=== PATIENT | female | born 1965 | race Caucasian/White ===

== ENCOUNTER → 2016-08-28 | Outpatient (REF) | payer BC | LOC: M LAB REF 19:07 | PROVIDERS: ATTEND Physician Assistant Medical | DX: J02.9 Acute pharyngitis, unspecified (principal) ==

== ENCOUNTER → 2016-10-26 | Outpatient (REF) | payer BC ==
[2016-10-26 13:20] LABS: FREE T4 1.3 NG/DL (0.76-1.46)
== END ==
LOC: M LAB REF 12:28
PROVIDERS: ATTEND Internal Medicine Nephrology
DX: Z94.0 Kidney transplant status (principal); E03.9 Hypothyroidism, unspecified

== ENCOUNTER → 2017-03-31 | Outpatient (REF) | payer BC | LOC: M LAB REF 07:54 | PROVIDERS: ATTEND Internal Medicine Nephrology | DX: E03.9 Hypothyroidism, unspecified (principal); Z94.0 Kidney transplant status ==

== ENCOUNTER → 2017-06-25 | Outpatient (REF) | payer BC ==
[2017-06-25 14:12] LABS: FREE T4 1.31 NG/DL (0.76-1.46)
== END ==
LOC: M LAB REF 13:13
PROVIDERS: ATTEND Internal Medicine Nephrology
DX: Z94.0 Kidney transplant status (principal); E03.9 Hypothyroidism, unspecified

== ENCOUNTER 2017-07-05 23:53 | Emergency (ER) | payer BC ==
[2017-07-06] MEDS: ONDANSETRON 4 MG ORAL DISINTEGRATING TAB (S0181) PO (00:45)
[2017-07-06] MEDS: METOCLOPRAMIDE INJ 10MG/2ML VIAL (J2765) IV (02:45)
[2017-07-06] MEDS: NS 1,000 ML IV (02:45)
[2017-07-06 03:21] LABS: BASO % 0.1 % (0.0-1.0); EOS % 0.4 % (0.0-3.0); IMMATURE GRANULOCYTE % 0.4 % (0-0); LYMPH % 2.7 % (24.0-44.0); MEAN CORPUSCULAR HEMOGLOBIN 29.8 pg (27.0-33.0); MEAN CORPUSCULAR HGB CONC 32.2 g/dl (32.0-36.5); MEAN CORPUSCULAR VOLUME 92.8 fl (80.0-96.0); MONO # 0.8 10^3/uL (0.0-0.8); MONO % 10.1 % (0.0-5.0); NEUTROPHILS # 6.6 10^3/uL (1.8-7.7); NEUTROPHILS % 86.3 % (36.0-66.0); RED CELL DISTRIBUTION WIDTH 12.5 % (11.5-14.5); WHITE BLOOD COUNT 7.7 10^3/uL (4.0-10.0)
[2017-07-06 03:38] LABS: ANION GAP 10 MEQ/L (8-16); BLOOD UREA NITROGEN 18 MG/DL (7-18); CALCIUM LEVEL 7.7 MG/DL (8.5-10.1); CARBON DIOXIDE LEVEL 25 MEQ/L (21-32); CHLORIDE LEVEL 107 MEQ/L (98-107); CREATININE FOR GFR 1.21 MG/DL (0.55-1.02); GLOMERULAR FILTRATION RATE 50.1 (>51); GLUCOSE, FASTING 94 MG/DL (70-105); POTASSIUM SERUM 3.6 MEQ/L (3.5-5.1); SODIUM LEVEL 142 MEQ/L (136-145)
[2017-07-06 03:43] LABS: IMMATURE PLATELET FRACTION % 8.7 % (0.0-9.6); LYMPH # 0.2 10^3/uL (1.5-4.5); PLATELET COUNT, AUTOMATED 52 10^3/uL (150-450); POSITIVE DIFF POS FLAG
== END 2017-07-06 06:29 | disposition home or self-care (01) ==
LOC: M ED 23:53
DX: K52.9 Noninfective gastroenteritis and colitis, unspecified (principal); E03.9 Hypothyroidism, unspecified; Z79.899 Other long term (current) drug therapy; Z79.52 Long term (current) use of systemic steroids
CPT/HCPCS: J2765

== ENCOUNTER 2017-10-08 06:44 | Day surgery (SDC) | payer BC ==
[2017-10-08] MEDS: NS 1,000 ML IV (07:30)
[2017-10-08] MEDS ORDERED: LIDOCAINE 2% INJ 100 MG/5 ML SDV (FOR ANES.) As Ordered (07:58)
[2017-10-08] MEDS ORDERED: PROPOFOL 200 MG/20 ML VIAL As Ordered (07:58)
[2017-10-08] MEDS ORDERED: PHENYLephrine HCL 500 MCG/5 ML (100MCG/ML) SYRINGE (J2370) As Ordered (08:42)
== END 2017-10-08 09:04 | disposition home or self-care (01) ==
LOC: M OPP 06:44
DX: Z12.11 Encounter for screening for malignant neoplasm of colon (principal); D12.7 Benign neoplasm of rectosigmoid junction; E03.9 Hypothyroidism, unspecified; I10 Essential (primary) hypertension; Z94.0 Kidney transplant status; Z99.2 Dependence on renal dialysis; K21.9 Gastro-esophageal reflux disease without esophagitis; Z88.8 Allergy status to other drugs, medicaments and biological substances; Z79.52 Long term (current) use of systemic steroids; Z79.899 Other long term (current) drug therapy
CPT/HCPCS: 45380

== ENCOUNTER → 2017-10-22 | Outpatient (REF) | payer BC ==
[2017-10-22 14:16] LABS: FREE T4 1.44 NG/DL (0.76-1.46); THYROID STIMULATING HORMONE 0.431 uIU/ML (0.358-3.740)
[2017-10-24 14:56] LABS: FK 506 (TACROLIMUS) LABCORP 4.5 ng/mL (2.0-20.0)
== END ==
LOC: M LAB REF 13:27
DX: Z94.0 Kidney transplant status (principal); E03.9 Hypothyroidism, unspecified
CPT/HCPCS: 84443

== ENCOUNTER → 2018-03-28 | Outpatient (REF) | payer BC ==
[2018-03-28 15:00] LABS: CHOLESTEROL LEVEL 180 MG/DL (<200); HDL CHOLESTEROL 46 MG/DL (>40); LDL CHOLESTEROL 72 MG/DL (<100); NON-HDL-C 134 MG/DL; TRIGLYCERIDES LEVEL 312 MG/DL (<150)
[2018-03-29 06:57] LABS: CHOLESTEROL RISK RATIO 3.913 (<5)
[2018-03-31 08:12] LABS: FK 506 (TACROLIMUS) LABCORP 6.1 ng/mL
== END ==
LOC: M LAB REF 13:28
DX: Z94.0 Kidney transplant status (principal); E03.9 Hypothyroidism, unspecified
CPT/HCPCS: 80061

== ENCOUNTER → 2018-07-28 | Outpatient (REF) | payer BC ==
[~2018-07-28] MED LIST: AZEL1SPR3; BRIM1OPD OU; Calcium; D 1010004; FEXO60CA PO; FOSA70TA PO; LATA5OPD OU; LEVO88TA3 PO; MAGN50TA PO; MOME50SP; MOME50SP2; MYCO1TAB; MYCO1TAB PO; OS-CTAB PO; PANT40TA3 PO; PRED5TA PO; PROG1CAP2 PO; REGL10TA6 PO; VITA100067 PO; VITMTA PO
[2018-07-28 14:17] LABS: BASO % 0.2 % (0.0-1.0); EOS # 0.2 10^3/uL (0.0-0.50); EOS % 2.1 % (0.0-3.0); HEMATOCRIT 43.1 % (36.0-47.0); HEMOGLOBIN 14.1 g/dl (12.0-15.5); LYMPH # 2.1 10^3/uL (1.5-4.5); LYMPH % 24.5 % (24.0-44.0); MEAN CORPUSCULAR HEMOGLOBIN 30.5 pg (27.0-33.0); MEAN CORPUSCULAR HGB CONC 32.7 g/dl (32.0-36.5); MEAN CORPUSCULAR VOLUME 93.1 fl (80.0-96.0); MONO # 0.5 10^3/uL (0.0-0.8); MONO % 6.1 % (0.0-5.0); NEUTROPHILS # 5.7 10^3/uL (1.8-7.7); NEUTROPHILS % 66.9 % (36.0-66.0); RED BLOOD COUNT 4.63 10^6/uL (4.00-5.40); WHITE BLOOD COUNT 8.5 10^3/uL (4.0-10.0)
[2018-07-28 14:18] LABS: APPEARANCE, URINE CLEAR (CLEAR); BACTERIA, URINE AUTO NEGATIVE (NEGATIVE); BILIRUBIN, URINE AUTO NEGATIVE (NEGATIVE); BLOOD, URINE BLOOD NEGATIVE (NEGATIVE); COLOR, URINE YELLOW (YELLOW); GLUCOSE, URINE (UA) AUTO NEGATIVE (NEGATIVE); KETONE, URINE AUTO NEGATIVE (NEGATIVE); LEUKOCYTE ESTERASE, URINE AUTO NEGATIVE (NEGATIVE); NITRITE, URINE AUTO NEGATIVE (NEGATIVE); PROTEIN, URINE AUTO NEGATIVE (NEGATIVE); RBC, URINE AUTO 0 /HPF (0-3); SPECIFIC GRAVITY URINE AUTO 1.011 (1.002-1.035); SQUAMOUS EPITHELIAL CELL UR AU 3 /HPF (0-6); UROBILINOGEN, URINE AUTO 0.2 mg/dL (0.0-2.0); WBC, URINE AUTO 1 /HPF (0-3)
[2018-07-28 14:28] LABS: ALBUMIN 3.4 GM/DL (3.2-5.2); BLOOD UREA NITROGEN 11 MG/DL (7-18); CALCIUM LEVEL 8.5 MG/DL (8.5-10.1); CARBON DIOXIDE LEVEL 26 MEQ/L (21-32); CHLORIDE LEVEL 105 MEQ/L (98-107); CREATININE FOR GFR 1.02 MG/DL (0.55-1.30); GLOMERULAR FILTRATION RATE > 60.0 (>51); GLUCOSE, FASTING 84 MG/DL (70-100); MAGNESIUM LEVEL 1.6 MG/DL (1.8-2.4); PHOSPHORUS LEVEL 2.5 MG/DL (2.5-4.9); POTASSIUM SERUM 3.9 MEQ/L (3.5-5.1); SODIUM LEVEL 141 MEQ/L (136-145)
[2018-07-28 14:31] LABS: CREATININE,RANDOM URINE 76.3 MG/DL; TOTAL PROTEIN,RANDOM URINE 10.1 MG/DL (0.0-12.0)
[2018-07-28 15:02] LABS: PLATELET COUNT, AUTOMATED 88 10^3/uL (150-450)
[2018-07-30 15:16] LABS: BK VIRUS BLOOD PCR1 Negative copies/mL (Negative)
== END ==
LOC: M LAB REF 13:44
PROVIDERS: ATTEND Nurse Practitioner Family
DX: Z94.0 Kidney transplant status (principal); N18.5 Chronic kidney disease, stage 5; D84.9 Immunodeficiency, unspecified; Z79.899 Other long term (current) drug therapy

== ENCOUNTER → 2018-07-28 | Outpatient (REF) | payer BC ==
[2018-07-28 14:40] LABS: FREE T4 1.27 NG/DL (0.76-1.46); THYROID STIMULATING HORMONE 1.27 uIU/ML (0.358-3.740)
== END ==
LOC: M LAB REF 13:42
PROVIDERS: ATTEND Internal Medicine Nephrology
DX: E03.9 Hypothyroidism, unspecified (principal); Z94.0 Kidney transplant status

== ENCOUNTER → 2018-11-25 | Outpatient (REF) | payer BC ==
[~2018-11-25] MED LIST changes: +LATA0.0013 OU; -LATA5OPD OU
== END ==
LOC: M LAB REF 13:14
PROVIDERS: ATTEND Internal Medicine Nephrology
DX: E03.9 Hypothyroidism, unspecified (principal); Z94.0 Kidney transplant status

== ENCOUNTER → 2018-12-02 | Outpatient (CLI) | payer BC ==
[2018-12-02 10:03] LABS: APPEARANCE, URINE HAZY (CLEAR); BACTERIA, URINE AUTO 1+ (NEGATIVE); BILIRUBIN, URINE AUTO NEGATIVE (NEGATIVE); BLOOD, URINE BLOOD NEGATIVE (NEGATIVE); COLOR, URINE YELLOW (YELLOW); GLUCOSE, URINE (UA) AUTO NEGATIVE (NEGATIVE); KETONE, URINE AUTO NEGATIVE (NEGATIVE); LEUKOCYTE ESTERASE, URINE AUTO 1+ (NEGATIVE); NITRITE, URINE AUTO NEGATIVE (NEGATIVE); PROTEIN, URINE AUTO NEGATIVE (NEGATIVE); RBC, URINE AUTO 1 /HPF (0-3); SPECIFIC GRAVITY URINE AUTO 1.009 (1.002-1.035); SQUAMOUS EPITHELIAL CELL UR AU 4 /HPF (0-6); UROBILINOGEN, URINE AUTO 0.2 mg/dL (0.0-2.0); WBC, URINE AUTO 6 /HPF (0-3)
[2018-12-02 10:04] LABS: BASO % 0.4 % (0.0-1.0); EOS # 0.2 10^3/uL (0.0-0.50); HEMATOCRIT 41.9 % (36.0-47.0); HEMOGLOBIN 13.3 g/dl (12.0-15.5); LYMPH # 2.2 10^3/uL (1.5-4.5); LYMPH % 29.9 % (24.0-44.0); MEAN CORPUSCULAR HEMOGLOBIN 29.6 pg (27.0-33.0); MEAN CORPUSCULAR HGB CONC 31.7 g/dl (32.0-36.5); MEAN CORPUSCULAR VOLUME 93.3 fl (80.0-96.0); MONO # 0.4 10^3/uL (0.0-0.8); MONO % 5.9 % (0.0-5.0); NEUTROPHILS # 4.6 10^3/uL (1.8-7.7); NEUTROPHILS % 61.3 % (36.0-66.0); RED BLOOD COUNT 4.49 10^6/uL (4.00-5.40); WHITE BLOOD COUNT 7.4 10^3/uL (4.0-10.0)
[2018-12-02 10:08] LABS: PLATELET COUNT, AUTOMATED 93 10^3/uL (150-450)
[2018-12-02 10:33] LABS: CREATININE,RANDOM URINE 46.7 MG/DL; TOTAL PROTEIN,RANDOM URINE 6.7 MG/DL (0.0-12.0)
[2018-12-02 10:37] LABS: ALBUMIN 3.2 GM/DL (3.2-5.2); BILIRUBIN,DIRECT 0.1 MG/DL (0.0-0.2); BILIRUBIN,TOTAL 0.4 MG/DL (0.2-1.0); CALCIUM LEVEL 8.3 MG/DL (8.5-10.1); CREATININE FOR GFR 1.05 MG/DL (0.55-1.30); GLOMERULAR FILTRATION RATE 58.8 (>51); MAGNESIUM LEVEL 1.7 MG/DL (1.8-2.4); POTASSIUM SERUM 4.4 MEQ/L (3.5-5.1); TOTAL PROTEIN 6.3 GM/DL (6.4-8.2)
== END ==
LOC: M LAB 09:03
PROVIDERS: ATTEND Nurse Practitioner Family
DX: Z51.81 Encounter for therapeutic drug level monitoring (principal); Z79.899 Other long term (current) drug therapy; Z94.0 Kidney transplant status; N18.5 Chronic kidney disease, stage 5; D84.9 Immunodeficiency, unspecified

== ENCOUNTER → 2019-01-04 | Outpatient (CLI) | payer BC ==
--- NOTE | 2019-01-04 12:11 | REP ---
Clinical: Right foot pain Technique: AP, lateral, bilateral oblique views right foot . Findings: While no definite acute fracture or dislocation is appreciated, there is a subtle lucency at the base of the fourth and fifth metatarsal bones which require clinical correlation. Findings may represent sequelae of old injury, but early acute injury including stress fracture cannot definitively exclude. Remainder examination appears normal. Impression: Findings at the base of the fourth and fifth metatarsal bones as noted above. Differential diagnosis may include normal variant, changes related to old injury, as well as possible early acute injury and stress fracture. Correlation is required. Electronically Signed by Daniel Hollingsworth MD 01/04/2019 12:03 P
== END ==
LOC: M ADAMS 11:46
PROVIDERS: ATTEND Physician Assistant
DX: M79.671 Pain in right foot (principal)

== ENCOUNTER → 2019-02-24 | Outpatient (CLI) | payer BC ==
[2019-02-24 13:02] LABS: FOLLICLE STIMULATING HORMONE 155.1 mIU/mL; LUTEINIZING HORMONE 54.8 mIU/mL
== END ==
LOC: M LAB 11:36
PROVIDERS: ATTEND Obstetrics & Gynecology
DX: N91.2 Amenorrhea, unspecified (principal)

== ENCOUNTER → 2019-03-03 | Outpatient (REF) | payer BC ==
[2019-03-03 13:47] LABS: CHOLESTEROL RISK RATIO 2.982 (<5); FREE T4 1.49 NG/DL (0.76-1.46); THYROID STIMULATING HORMONE 1.38 uIU/ML (0.358-3.740)
== END ==
LOC: M LAB REF 13:15
PROVIDERS: ATTEND Internal Medicine Nephrology
DX: Z94.0 Kidney transplant status (principal); Z48.22 Encounter for aftercare following kidney transplant; E03.9 Hypothyroidism, unspecified

== ENCOUNTER → 2019-06-02 | Outpatient (REF) | payer BC | LOC: M LAB REF 13:09 | PROVIDERS: ATTEND Nurse Practitioner Family | DX: Z94.0 Kidney transplant status (principal) ==

== ENCOUNTER → 2019-10-06 | Outpatient (REF) | payer BC ==
[2019-10-06 14:33] LABS: ALBUMIN 3.5 GM/DL (3.2-5.2); ALT/SGPT 19 U/L (12-78); BILIRUBIN,DIRECT < 0.1 MG/DL (0.0-0.2); BILIRUBIN,TOTAL 0.3 MG/DL (0.2-1.0); FREE T4 1.38 NG/DL (0.76-1.46); THYROID STIMULATING HORMONE 0.849 uIU/ML (0.358-3.740); TOTAL PROTEIN 6.5 GM/DL (6.4-8.2)
== END ==
LOC: M LAB REF 13:35
PROVIDERS: ATTEND Nurse Practitioner Family
DX: Z94.0 Kidney transplant status (principal); E03.9 Hypothyroidism, unspecified

== ENCOUNTER → 2020-01-19 | Outpatient (REF) | payer BC ==
[~2020-01-19] MED LIST changes: +PANT40TA29 PO; -PANT40TA3 PO; +PROG1CAP11 PO; -PROG1CAP2 PO
== END ==
LOC: M LAB REF 16:50
PROVIDERS: ATTEND Nurse Practitioner Family
DX: Z94.0 Kidney transplant status (principal)

== ENCOUNTER → 2020-04-26 | Outpatient (REF) | payer BC ==
[2020-04-26 18:44] LABS: FREE T4 1.42 NG/DL (0.76-1.46); THYROID STIMULATING HORMONE 0.356 uIU/ML (0.358-3.740)
== END ==
LOC: M LAB REF 17:15
PROVIDERS: ATTEND Nurse Practitioner Family
DX: Z94.0 Kidney transplant status (principal); E03.9 Hypothyroidism, unspecified

== ENCOUNTER → 2020-05-02 | Outpatient (CLI) | payer BC ==
--- NOTE | 2020-05-02 13:27 | REP ---
INDICATION: HYPOTHYROIDISM COMPARISON: None. TECHNIQUE: Jacob scale and color evaluation of the thyroid gland using the linear high frequency transducer. FINDINGS: The thyroid gland is heterogeneous. Right thyroid lobe measures 2.2 x 0.9 x 0.5 cm cm. Isthmus measures 2.2 mm in width. Left thyroid lobe measures 2.1 x 1.0 x 1.1 cm with 3 x 2 x 3 mm complex hypoechoic nodule in the upper pole. IMPRESSION: Small nonspecific hypoechoic nodule in the left thyroid lobe. <Electronically signed by Daniel Hollingsworth > 05/02/20 [id number]
== END ==
LOC: M RAD 11:56
PROVIDERS: ATTEND Internal Medicine Nephrology
DX: E03.9 Hypothyroidism, unspecified (principal); E04.1 Nontoxic single thyroid nodule

== ENCOUNTER → 2020-07-26 | Outpatient (REF) | payer BC ==
[2020-07-26 17:30] LABS: FREE T4 1.35 NG/DL (0.76-1.46); THYROID STIMULATING HORMONE 1.47 uIU/ML (0.358-3.740)
== END ==
LOC: M LAB REF 16:55
PROVIDERS: ATTEND Internal Medicine Nephrology
DX: Z94.0 Kidney transplant status (principal); E03.9 Hypothyroidism, unspecified

== ENCOUNTER → 2020-09-20 | Outpatient (REF) | payer BC | LOC: M LAB REF 17:05 | PROVIDERS: ATTEND Internal Medicine Nephrology | DX: Z94.0 Kidney transplant status (principal) ==

== ENCOUNTER → 2021-01-03 | Outpatient (REF) | payer BC ==
[2021-01-03 17:51] LABS: FREE T4 1.32 NG/DL (0.76-1.46); THYROID STIMULATING HORMONE 0.442 uIU/ML (0.358-3.740)
== END ==
LOC: M LAB REF 16:41
PROVIDERS: ATTEND Internal Medicine Nephrology
DX: Z94.0 Kidney transplant status (principal); E03.9 Hypothyroidism, unspecified

== ENCOUNTER → 2021-01-17 | Outpatient (CLI) | payer BC ==
[~2021-01-17] MED LIST changes: -MOME50SP; +NASO50SP3
== END ==
LOC: M RAD 11:34
PROVIDERS: ATTEND Internal Medicine Nephrology
DX: R04.1 Hemorrhage from throat (principal); E03.9 Hypothyroidism, unspecified

== ENCOUNTER → 2021-04-04 | Outpatient (REF) | payer BC ==
[~2021-04-04] MED LIST changes: +MOME50SP; -NASO50SP3
== END ==
LOC: M LAB REF 17:03
PROVIDERS: ATTEND Internal Medicine Nephrology
DX: Z94.0 Kidney transplant status (principal); E83.42 Hypomagnesemia

== ENCOUNTER → 2021-04-04 | Outpatient (REF) | payer BC | LOC: M LAB REF 17:05 | PROVIDERS: ATTEND Internal Medicine Nephrology | DX: Z94.0 Kidney transplant status (principal); E83.42 Hypomagnesemia ==

== ENCOUNTER → 2021-08-15 | Outpatient (REF) | payer BC ==
[~2021-08-15] MED LIST changes: -MOME50SP; +NASO50SP3
[2021-08-15 13:25] LABS: APPEARANCE, URINE HAZY (CLEAR); BACTERIA, URINE AUTO NEGATIVE (NEGATIVE); BASO % 0.1 % (0.0-1.0); BILIRUBIN, URINE AUTO NEGATIVE (NEGATIVE); BLOOD, URINE BLOOD NEGATIVE (NEGATIVE); CALCIUM OXALATE CRYSTALS SMALL; COLOR, URINE YELLOW (YELLOW); EOS # 0.2 10^3/uL (0.0-0.5); EOS % 2.4 % (0.0-3.0); GLUCOSE, URINE (UA) AUTO NEGATIVE (NEGATIVE); HEMATOCRIT 44.8 % (36.0-47.0); HEMOGLOBIN 14.2 g/dl (12.0-15.5); KETONE, URINE AUTO NEGATIVE (NEGATIVE); LEUKOCYTE ESTERASE, URINE AUTO TRACE (NEGATIVE); LYMPH # 2.1 10^3/uL (1.5-5.0); LYMPH % 31.1 % (24.0-44.0); MEAN CORPUSCULAR HGB CONC 31.7 g/dl (32.0-36.5); MEAN CORPUSCULAR VOLUME 91.4 fl (80.0-96.0); MONO # 0.6 10^3/uL (0.0-0.8); MONO % 8.2 % (2.0-8.0); NEUTROPHILS # 3.9 10^3/uL (1.5-8.5); NEUTROPHILS % 58.1 % (36.0-66.0); NITRITE, URINE AUTO NEGATIVE (NEGATIVE); PROTEIN, URINE AUTO NEGATIVE (NEGATIVE); RBC, URINE AUTO 1 /HPF (0-3); SPECIFIC GRAVITY URINE AUTO 1.017 (1.002-1.035); SQUAMOUS EPITHELIAL CELL UR AU 2 /HPF (0-6); UROBILINOGEN, URINE AUTO 0.2 mg/dL (0.0-2.0); WBC, URINE AUTO 5 /HPF (0-3); WHITE BLOOD COUNT 6.7 10^3/uL (4.0-10.0)
[2021-08-15 13:29] LABS: TOTAL PROTEIN,RANDOM URINE 20.6 MG/DL (0.0-12.0)
[2021-08-15 13:50] LABS: ALBUMIN 3.4 GM/DL (3.2-5.2); CALCIUM LEVEL 9.1 MG/DL (8.5-10.1); CREATININE FOR GFR 1.3 MG/DL (0.55-1.30); GLOMERULAR FILTRATION RATE 45.4 (>51); PHOSPHORUS LEVEL 3.2 MG/DL (2.5-4.9); POTASSIUM SERUM 4.6 MEQ/L (3.5-5.1)
[2021-08-15 13:51] LABS: PLATELET COUNT, AUTOMATED 90 10^3/uL (150-450)
[2021-08-16 12:49] LABS: MAGNESIUM LEVEL 1.6 MG/DL (1.7-2.2)
== END ==
LOC: M LAB REF 12:38
PROVIDERS: ATTEND Nurse Practitioner Family
DX: D64.9 Anemia, unspecified (principal); N18.5 Chronic kidney disease, stage 5; Z94.0 Kidney transplant status; Z79.899 Other long term (current) drug therapy

== ENCOUNTER → 2022-01-16 | Outpatient (REF) | payer BC ==
[~2022-01-16] MED LIST changes: -FEXO60CA PO; +FEXO60TA99 PO
== END ==
LOC: M LAB REF 16:44
PROVIDERS: ATTEND Nurse Practitioner Family
DX: Z94.0 Kidney transplant status (principal)

== ENCOUNTER → 2022-01-30 | Outpatient (CLI) | payer BC | LOC: M WHC 08:27 | PROVIDERS: ATTEND Nurse Practitioner Family | DX: M81.8 Other osteoporosis without current pathological fracture (principal); M85.851 Other specified disorders of bone density and structure, right thigh; M85.852 Other specified disorders of bone density and structure, left thigh ==

== ENCOUNTER → 2022-04-24 | Outpatient (REF) | payer BC ==
[~2022-04-24] MED LIST changes: +ALEN70TA87 PO; -FOSA70TA PO
[2022-04-24 18:25] LABS: FREE T4 1.51 NG/DL (0.76-1.46); THYROID STIMULATING HORMONE 0.578 uIU/ML (0.358-3.740)
== END ==
LOC: M LAB REF 16:56
PROVIDERS: ATTEND Nurse Practitioner Family
DX: E03.9 Hypothyroidism, unspecified (principal)

== ENCOUNTER → 2022-04-24 | Outpatient (CLI) | payer BC | LOC: M WHC 14:16 | PROVIDERS: ATTEND Obstetrics & Gynecology | DX: Z12.31 Encounter for screening mammogram for malignant neoplasm of breast (principal); Z80.3 Family history of malignant neoplasm of breast; Z80.0 Family history of malignant neoplasm of digestive organs ==

== ENCOUNTER → 2022-07-17 | Outpatient (REF) | payer BC | LOC: M LAB REF 17:11 | PROVIDERS: ATTEND Nurse Practitioner Family | DX: Z94.0 Kidney transplant status (principal) ==

== ENCOUNTER → 2022-10-23 | Outpatient (REF) | payer BC | LOC: M LAB REF 17:03 | PROVIDERS: ATTEND Nurse Practitioner Family | DX: Z94.0 Kidney transplant status (principal) ==

== ENCOUNTER → 2023-01-14 | Outpatient (REF) | payer BC ==
[2023-01-14 13:22] LABS: URIC ACID 5.9 MG/DL (3.1-7.8)
[2023-01-14 13:26] LABS: PTH INTACT 60.5 PG/ML (18.5-88.0)
== END ==
LOC: M LAB REF 12:04
PROVIDERS: ATTEND Internal Medicine
DX: N18.9 Chronic kidney disease, unspecified (principal)

== ENCOUNTER → 2023-01-15 | Outpatient (CLI) | payer BC ==
[2023-01-18 17:51] LABS: FREE T4 1.65 NG/DL (0.89-1.76); THYROID STIMULATING HORMONE 0.325 uIU/ML (0.55-4.78)
== END ==
LOC: M RAD 10:44
PROVIDERS: ATTEND Nurse Practitioner Family
DX: M79.644 Pain in right finger(s) (principal); E03.9 Hypothyroidism, unspecified; Z94.0 Kidney transplant status

== ENCOUNTER → 2023-05-14 | Outpatient (CLI) | payer BC | LOC: M WHC 09:25 | PROVIDERS: ATTEND Obstetrics & Gynecology | DX: Z12.31 Encounter for screening mammogram for malignant neoplasm of breast (principal); Z80.3 Family history of malignant neoplasm of breast; Z80.0 Family history of malignant neoplasm of digestive organs; R92.1 Mammographic calcification found on diagnostic imaging of breast; N63.11 Unspecified lump in the right breast, upper outer quadrant ==

== ENCOUNTER 2023-05-21 08:22 | Inpatient (IN) | payer BC ==
[~2023-05-21] VITALS: Ht 144.8 cm; Wt 81.3 kg
[2023-05-21] MEDS ORDERED: NS 1,000 ML IV ONE (09:00)
[2023-05-21] MEDS ORDERED: ONDANSETRON 4MG 2ML VIAL IV ONE (09:00)
[2023-05-21 09:09] LABS: HEMATOCRIT 45.5 % (36.0-47.0); HEMOGLOBIN 15.2 g/dl (12.0-15.5); MEAN CORPUSCULAR HGB CONC 33.4 g/dl (32.0-36.5); MEAN CORPUSCULAR VOLUME 89.7 fl (80.0-96.0); RED BLOOD COUNT 5.07 10^6/uL (4.00-5.40); WHITE BLOOD COUNT 23.3 10^3/uL (4.0-10.0)
[2023-05-21 09:10] LABS: PLATELET COUNT, AUTOMATED 51 10^3/uL (150-450)
[2023-05-21] MEDS ORDERED: OMEGCAP4 PO (09:22)
[2023-05-21] MEDS ORDERED: NETA2.5D2 (09:22)
[2023-05-21 09:25] LABS: LYMPHOCYTES 1 % (16-44); MONOCYTES 3 % (0-5); NEUTROPHILS 87 % (28-66)
[2023-05-21 09:26] LABS: PLATELET ESTIMATE MARKED DECREASE (NORMAL)
[2023-05-21 09:29] LABS: CALCIUM LEVEL 8.3 MG/DL (8.5-10.1); CREATININE FOR GFR 3.14 MG/DL (0.55-1.30); GLOMERULAR FILTRATION RATE 16.3 (>51); MAGNESIUM LEVEL 1.2 MG/DL (1.8-2.4); POTASSIUM SERUM 4.3 MMOL/L (3.5-5.1)
[2023-05-21 09:30] LABS: ALBUMIN 3.2 G/DL (3.2-5.2); BILIRUBIN,DIRECT 0.4 MG/DL (<0.4); TOTAL PROTEIN 6.2 G/DL (5.7-8.2)
[2023-05-21] MEDS ORDERED: MAG SULF 1GM/100ML (MAG RUN) 1 GM in IV 1 EA IV ONE (09:45)
[2023-05-21 09:58] LABS: RSV AMPLIFICATION NEGATIVE (NEGATIVE)
[2023-05-21] MEDS: NS 1,360 ML in IV 1 EA IV ONE ×2 (10:34→11:06)
[2023-05-21] MEDS: cefTRIAXone SOD 2 GM in D5W MINI-BAG PLUS 50 ML IV ONE ×2 (10:34→11:03)
[2023-05-21] MEDS ORDERED: HEPARIN SOD (PORCINE) 5000UNITS/ML 1ML VIAL/SYRINGE SC SCH (13:20)
[2023-05-21] MEDS ORDERED: ACETAMINOPHEN TAB 650MG DOSE (2X325MG) PO PRN (13:20)
[2023-05-21] MEDS ORDERED: MED REC IN PROGRESS XX SCH (13:40)
[2023-05-21] MEDS: NS 1,000 ML IV SCH ×2 (13:40→14:57)
[2023-05-21] MEDS ORDERED: MAGN400T2 PO (14:38)
[2023-05-21] MEDS ORDERED: MOME50SP2 NARES (14:38)
[2023-05-21] MEDS ORDERED: VITAD1000T PO (14:38)
[2023-05-21] MEDS ORDERED: HOME MED LIST COMPLETE! XX SCH (14:40)
[2023-05-21 14:57] VITALS: BP 136/61; TEMP 98; O2SAT 98
[2023-05-21] MEDS: ONDANSETRON 4MG 2ML VIAL IV PRN (14:57)
[2023-05-21] MEDS: predniSONE 5 MG TAB PO SCH (16:28)
[2023-05-21 19:31] VITALS: BP 130/62; TEMP 99.7; O2SAT 91
[2023-05-21] MEDS: TACROLIMUS 1MG CAP PO SCH (20:14)
[2023-05-21] MEDS: AZELASTINE 137MCG NASAL SPY 30 ML (ASTELIN) SCH (20:15)
[2023-05-21] MEDS: MAGNESIUM OXIDE 400MG TAB (MAG-OX) PO SCH (20:15)
[2023-05-21] MEDS: OMEGA-3 1000MG CAPSULE PO SCH (20:15)
[2023-05-21] MEDS: BRIMONIDINE 0.1% OPHTH SOLN 5ML OU SCH (20:15)
[2023-05-22] MEDS: ONDANSETRON 4MG 2ML VIAL IV PRN (00:29)
[2023-05-22 00:31] VITALS: BP 120/58; TEMP 98.1; O2SAT 92
[2023-05-22 03:39] VITALS: BP 131/62; TEMP 98.4; O2SAT 94
[2023-05-22] MEDS: LEVOTHYROXINE 88MCG TABLET (0.088 MG) PO SCH (05:28)
[2023-05-22 06:31] LABS: HEMATOCRIT 36.2 % (36.0-47.0); MEAN CORPUSCULAR HEMOGLOBIN 30.3 pg (27.0-33.0); MEAN CORPUSCULAR HGB CONC 33.4 g/dl (32.0-36.5); MEAN CORPUSCULAR VOLUME 90.7 fl (80.0-96.0); RED BLOOD COUNT 3.99 10^6/uL (4.00-5.40); WHITE BLOOD COUNT 10.1 10^3/uL (4.0-10.0)
[2023-05-22 06:39] LABS: HEMOGLOBIN 12.1 g/dl (12.0-15.5)
[2023-05-22 06:40] LABS: PLATELET COUNT, AUTOMATED 34 10^3/uL (150-450)
[2023-05-22 06:55] LABS: ALBUMIN 2.2 G/DL (3.2-5.2); BILIRUBIN,TOTAL 0.4 MG/DL (0.3-1.2); CALCIUM LEVEL 6.9 MG/DL (8.5-10.1); CREATININE FOR GFR 2.11 MG/DL (0.55-1.30); GLOMERULAR FILTRATION RATE 25.8 (>51); MAGNESIUM LEVEL 1.6 MG/DL (1.8-2.4); POTASSIUM SERUM 3.8 MMOL/L (3.5-5.1); TOTAL PROTEIN 4.9 G/DL (5.7-8.2)
[2023-05-22 07:31] VITALS: BP 130/65; TEMP 97.5; O2SAT 93
[2023-05-22] MEDS ORDERED: PANTOPRAZOLE 40MG TAB (PROTONIX) PO SCH (09:00)
[2023-05-22] MEDS: predniSONE 5 MG TAB PO SCH (09:07)
[2023-05-22] MEDS: OMEGA-3 1000MG CAPSULE PO SCH ×2 (09:08→20:20)
[2023-05-22] MEDS: MAGNESIUM OXIDE 400MG TAB (MAG-OX) PO SCH ×2 (09:08→20:21)
[2023-05-22] MEDS: MULTIVITAMINS/MINERALS THERAP 1 TAB PO SCH (09:08)
[2023-05-22] MEDS: FEXOFENADINE 60MG TAB PO SCH (09:08)
[2023-05-22] MEDS: TACROLIMUS 1MG CAP PO SCH ×2 (09:08→20:20)
[2023-05-22] MEDS: AZELASTINE 137MCG NASAL SPY 30 ML (ASTELIN) SCH ×2 (09:08→20:21)
[2023-05-22] MEDS: NS 1,000 ML IV SCH ×2 (09:09→16:49)
[2023-05-22] MEDS: BRIMONIDINE 0.1% OPHTH SOLN 5ML OU SCH ×2 (09:09→20:21)
[2023-05-22 10:29] LABS: HEMATOCRIT 35.9 % (36.0-47.0); HEMOGLOBIN 11.9 g/dl (12.0-15.5); MEAN CORPUSCULAR HEMOGLOBIN 30.1 pg (27.0-33.0); MEAN CORPUSCULAR HGB CONC 33.1 g/dl (32.0-36.5); MEAN CORPUSCULAR VOLUME 90.7 fl (80.0-96.0); RED BLOOD COUNT 3.96 10^6/uL (4.00-5.40); WHITE BLOOD COUNT 9.3 10^3/uL (4.0-10.0)
[2023-05-22 10:30] LABS: PLATELET COUNT, AUTOMATED 34 10^3/uL (150-450)
[2023-05-22 10:37] LABS: LYMPHOCYTES 3 % (16-44); MONOCYTES 4 % (0-5); NEUTROPHILS 82 % (28-66); PLATELET ESTIMATE MARKED DECREASE (NORMAL)
[2023-05-22 10:39] LABS: POLYCHROMASIA 1+
[2023-05-22] MEDS: cefTRIAXone SOD 2 GM in D5W MINI-BAG PLUS 50 ML IV SCH (11:38)
[2023-05-22 11:39] VITALS: BP 130/61; TEMP 98.2; O2SAT 93
[2023-05-22 11:41] LABS: INR 1.15; PROTHROMBIN TIME 14.3 SECONDS (12.5-14.5)
[2023-05-22 11:42] LABS: PARTIAL THROMBOPLASTIN TIME 31.6 SECONDS (24.8-34.2)
[2023-05-22 11:51] LABS: D-DIMER QUANT 4.73 ug/mL (<0.5)
[2023-05-22 16:00] VITALS: BP 131/60; TEMP 98.4; O2SAT 94
[2023-05-22] MEDS: guaiFENesin SYRUP 200MG 10ML UDC PO PRN (19:28)
[2023-05-22 19:30] VITALS: BP 142/64; TEMP 97.7; O2SAT 96
[2023-05-22 21:46] LABS: HEMOGLOBIN 12.2 g/dl (12.0-15.5); MEAN CORPUSCULAR HEMOGLOBIN 30.1 pg (27.0-33.0); MEAN CORPUSCULAR VOLUME 91.4 fl (80.0-96.0); PLATELET COUNT, AUTOMATED 33 10^3/uL (150-450); RED BLOOD COUNT 4.05 10^6/uL (4.00-5.40); WHITE BLOOD COUNT 7.7 10^3/uL (4.0-10.0)
[2023-05-22] MEDS: HEPARIN SOD (PORCINE) 5000UNITS/ML 1ML VIAL/SYRINGE SQ SCH (22:00)
[2023-05-23] VITALS (7 sets, daily range): BP systolic 123–148; BP diastolic 56–72; TEMP 97–98.4; O2SAT 94–99
[2023-05-23] MEDS: LEVOTHYROXINE 88MCG TABLET (0.088 MG) PO SCH (05:34)
[2023-05-23] MEDS: HEPARIN SOD (PORCINE) 5000UNITS/ML 1ML VIAL/SYRINGE SQ SCH ×3 (05:37→21:03)
[2023-05-23 05:50] LABS: BASO % 0.1 % (0.0-1.0); EOS # 0.1 10^3/uL (0.0-0.5); EOS % 0.7 % (0.0-3.0); HEMATOCRIT 36.3 % (36.0-47.0); HEMOGLOBIN 11.9 g/dl (12.0-15.5); LYMPH # 0.4 10^3/uL (1.5-5.0); LYMPH % 5.9 % (24.0-44.0); MEAN CORPUSCULAR HEMOGLOBIN 29.9 pg (27.0-33.0); MEAN CORPUSCULAR HGB CONC 32.8 g/dl (32.0-36.5); MEAN CORPUSCULAR VOLUME 91.2 fl (80.0-96.0); MONO # 0.6 10^3/uL (0.0-0.8); MONO % 8.5 % (2.0-8.0); NEUTROPHILS # 6.2 10^3/uL (1.5-8.5); NEUTROPHILS % 84.3 % (36.0-66.0); RED BLOOD COUNT 3.98 10^6/uL (4.00-5.40); WHITE BLOOD COUNT 7.3 10^3/uL (4.0-10.0)
[2023-05-23 05:52] LABS: PLATELET COUNT, AUTOMATED 33 10^3/uL (150-450)
[2023-05-23 06:08] LABS: CALCIUM LEVEL 7.6 MG/DL (8.5-10.1); CREATININE FOR GFR 1.65 MG/DL (0.55-1.30); GLOMERULAR FILTRATION RATE 34.3 (>51); MAGNESIUM LEVEL 1.9 MG/DL (1.8-2.4); POTASSIUM SERUM 3.8 MMOL/L (3.5-5.1)
[2023-05-23] MEDS: NS 1,000 ML IV SCH (06:28)
[2023-05-23] MEDS ORDERED: HEPARIN SOD (PORCINE) 5000UNITS/ML 1ML VIAL/SYRINGE SQ ONE (08:30)
[2023-05-23] MEDS: MAGNESIUM OXIDE 400MG TAB (MAG-OX) PO SCH (09:00)
[2023-05-23] MEDS: OMEGA-3 1000MG CAPSULE PO SCH ×2 (09:03→20:08)
[2023-05-23] MEDS: TACROLIMUS 1MG CAP PO SCH ×2 (09:03→20:08)
[2023-05-23] MEDS: predniSONE 5 MG TAB PO SCH (09:05)
[2023-05-23] MEDS: MULTIVITAMINS/MINERALS THERAP 1 TAB PO SCH (09:05)
[2023-05-23] MEDS: BRIMONIDINE 0.1% OPHTH SOLN 5ML OU SCH ×2 (09:05→20:09)
[2023-05-23] MEDS: AZELASTINE 137MCG NASAL SPY 30 ML (ASTELIN) SCH ×2 (09:05→20:09)
[2023-05-23] MEDS: FEXOFENADINE 60MG TAB PO SCH (09:05)
[2023-05-23] MEDS: cefTRIAXone SOD 2 GM in D5W MINI-BAG PLUS 50 ML IV SCH (12:04)
[2023-05-23] MEDS: guaiFENesin SYRUP 200MG 10ML UDC PO PRN ×2 (13:54→20:09)
[2023-05-24 04:00] VITALS: BP 140/71; TEMP 97.3; O2SAT 96
[2023-05-24 05:43] LABS: BASO % 0.3 % (0.0-1.0); EOS # 0.1 10^3/uL (0.0-0.5); EOS % 1.2 % (0.0-3.0); HEMATOCRIT 36.2 % (36.0-47.0); HEMOGLOBIN 12.1 g/dl (12.0-15.5); LYMPH # 0.8 10^3/uL (1.5-5.0); LYMPH % 10.1 % (24.0-44.0); MEAN CORPUSCULAR HEMOGLOBIN 29.9 pg (27.0-33.0); MEAN CORPUSCULAR HGB CONC 33.4 g/dl (32.0-36.5); MEAN CORPUSCULAR VOLUME 89.4 fl (80.0-96.0); MONO # 0.8 10^3/uL (0.0-0.8); MONO % 10.4 % (2.0-8.0); NEUTROPHILS # 6.1 10^3/uL (1.5-8.5); NEUTROPHILS % 77.4 % (36.0-66.0); RED BLOOD COUNT 4.05 10^6/uL (4.00-5.40); WHITE BLOOD COUNT 7.8 10^3/uL (4.0-10.0)
[2023-05-24 05:46] LABS: PLATELET COUNT, AUTOMATED 32 10^3/uL (150-450)
[2023-05-24] MEDS: HEPARIN SOD (PORCINE) 5000UNITS/ML 1ML VIAL/SYRINGE SQ SCH ×2 (06:06→14:01)
[2023-05-24] MEDS: LEVOTHYROXINE 88MCG TABLET (0.088 MG) PO SCH (06:06)
[2023-05-24 06:16] LABS: CREATININE FOR GFR 1.44 MG/DL (0.55-1.30); GLOMERULAR FILTRATION RATE 40.1 (>51); MAGNESIUM LEVEL 1.6 MG/DL (1.8-2.4); POTASSIUM SERUM 3.7 MMOL/L (3.5-5.1)
[2023-05-24] MEDS: guaiFENesin SYRUP 200MG 10ML UDC PO PRN ×2 (06:20→12:14)
[2023-05-24 07:39] VITALS: BP 128/60; TEMP 97.8; O2SAT 95
[2023-05-24] MEDS ORDERED: LEVO1TAB40 PO (07:44)
[2023-05-24] MEDS ORDERED: BACI1CAP PO (07:44)
[2023-05-24] MEDS ORDERED: CEFA1TAB PO (08:25)
[2023-05-24] MEDS ORDERED: NS 0.45% 1,000 ML IV ONE (09:00)
[2023-05-24] MEDS ORDERED: NS 0.45% 1,000 ML IV SCH (09:00)
[2023-05-24] MEDS ORDERED: MAG SULF 1GM/100ML (MAG RUN) 1 GM in IV 1 EA IV ONE (09:00)
[2023-05-24] MEDS: FEXOFENADINE 60MG TAB PO SCH (09:25)
[2023-05-24] MEDS: MULTIVITAMINS/MINERALS THERAP 1 TAB PO SCH (09:25)
[2023-05-24] MEDS: AZELASTINE 137MCG NASAL SPY 30 ML (ASTELIN) SCH (09:25)
[2023-05-24] MEDS: predniSONE 5 MG TAB PO SCH (09:25)
[2023-05-24] MEDS: OMEGA-3 1000MG CAPSULE PO SCH (09:25)
[2023-05-24] MEDS: TACROLIMUS 1MG CAP PO SCH (09:25)
[2023-05-24] MEDS: BRIMONIDINE 0.1% OPHTH SOLN 5ML OU SCH (09:26)
[2023-05-24] MEDS: cefTRIAXone SOD 2 GM in D5W MINI-BAG PLUS 50 ML IV SCH (11:30)
[2023-05-24 13:48] LABS: CREATININE FOR GFR 1.34 MG/DL (0.55-1.30); GLOMERULAR FILTRATION RATE 43.6 (>51); POTASSIUM SERUM 3.5 MMOL/L (3.5-5.1)
== END 2023-05-24 15:06 | disposition home or self-care (01) | DRG 720 ==
LOC: M ED 08:22 → M ED INP 13:19 → ENRESERV 14:00 → M PCU 14:52
PROVIDERS: ADMIT Family Medicine; ATTEND Family Medicine
DX: A41.51 Sepsis due to Escherichia coli [E. coli] (principal); E87.20 Acidosis, unspecified; D69.6 Thrombocytopenia, unspecified; I95.9 Hypotension, unspecified; N17.9 Acute kidney failure, unspecified; Z94.0 Kidney transplant status; K76.0 Fatty (change of) liver, not elsewhere classified; N18.30 Chronic kidney disease, stage 3 unspecified; E83.42 Hypomagnesemia; E03.9 Hypothyroidism, unspecified; N39.0 Urinary tract infection, site not specified; N10 Acute pyelonephritis; E66.9 Obesity, unspecified; Z79.890 Hormone replacement therapy; Z79.52 Long term (current) use of systemic steroids; Z79.899 Other long term (current) drug therapy; Z88.8 Allergy status to other drugs, medicaments and biological substances; Z20.822 Contact with and (suspected) exposure to COVID-19

== ENCOUNTER → 2023-05-26 | Outpatient (CLI) | payer BC ==
[~2023-05-26] MED LIST changes: +BACI1CAP PO; +CEFA1TAB PO; +LEVO1TAB40 PO; +MAGN400T2 PO; +MOME50SP2 NARES; +NETA2.5D2; +OMEGCAP4 PO; +VITAD1000T PO
== END ==
LOC: M WHC 09:13
PROVIDERS: ATTEND Obstetrics & Gynecology
DX: R92.2 Inconclusive mammogram (principal); R92.1 Mammographic calcification found on diagnostic imaging of breast; N63.13 Unspecified lump in the right breast, lower outer quadrant
CPT/HCPCS: 76642; 77065; G0279

== ENCOUNTER → 2023-06-11 | Outpatient (REF) | payer BC | LOC: M LAB REF 17:15 | PROVIDERS: ATTEND Nurse Practitioner Family | DX: Z94.0 Kidney transplant status (principal) ==

== ENCOUNTER → 2023-07-08 | Outpatient (CLI) | payer BC ==
[2023-07-08 07:50] VITALS: TEMP 98.2
[2023-07-09 09:55] VITALS: BP 114/72; O2SAT 97
== END ==
LOC: M WHCPRO 07:26
PROVIDERS: ATTEND Obstetrics & Gynecology
DX: R92.8 Other abnormal and inconclusive findings on diagnostic imaging of breast (principal); N63.13 Unspecified lump in the right breast, lower outer quadrant; D05.81 Other specified type of carcinoma in situ of right breast

== ENCOUNTER → 2023-07-30 | Outpatient (REF) | payer BC | LOC: M LAB REF 17:50 | PROVIDERS: ATTEND Nurse Practitioner Family | DX: Z94.0 Kidney transplant status (principal) ==

== ENCOUNTER → 2023-09-24 | Outpatient (REF) | payer BC ==
[2023-09-24 12:51] LABS: APPEARANCE, URINE CLEAR (CLEAR); BACTERIA, URINE AUTO 1+ (NEGATIVE); BILIRUBIN, URINE AUTO NEGATIVE (NEGATIVE); BLOOD, URINE BLOOD NEGATIVE (NEGATIVE); COLOR, URINE YELLOW (YELLOW); GLUCOSE, URINE (UA) AUTO NEGATIVE (NEGATIVE); KETONE, URINE AUTO NEGATIVE (NEGATIVE); LEUKOCYTE ESTERASE, URINE AUTO TRACE (NEGATIVE); NITRITE, URINE AUTO NEGATIVE (NEGATIVE); PROTEIN, URINE AUTO NEGATIVE (NEGATIVE); RBC, URINE AUTO 5 /HPF (0-3); SPECIFIC GRAVITY URINE AUTO 1.014 (1.002-1.035); SQUAMOUS EPITHELIAL CELL UR AU 3 /HPF (0-6); UROBILINOGEN, URINE AUTO 0.2 mg/dL (0.0-2.0); WBC, URINE AUTO 13 /HPF (0-3)
[2023-09-24 13:56] LABS: CREATININE, URINE 128.6 MG/DL
[2023-09-24 13:57] LABS: MAU/CREAT RATIO 6.2 MCG/MG (0.0-30.0)
== END ==
LOC: M LAB REF 12:13
PROVIDERS: ATTEND Internal Medicine
DX: Z94.0 Kidney transplant status (principal); N18.5 Chronic kidney disease, stage 5; D84.9 Immunodeficiency, unspecified; Z79.899 Other long term (current) drug therapy

== ENCOUNTER → 2023-10-29 | Outpatient (REF) | payer BC ==
[~2023-10-29] MED LIST changes: +ANAS1TAB2 PO; +OPTI0.5D2 OP; +THERTAB52 PO
== END ==
LOC: M LAB REF 17:20
PROVIDERS: ATTEND Nurse Practitioner Family
DX: Z94.0 Kidney transplant status (principal)

== ENCOUNTER → 2023-11-19 | Outpatient (CLI) | payer BC | LOC: M ONCR 10:43 | PROVIDERS: ATTEND General Practice | DX: C50.311 Malignant neoplasm of lower-inner quadrant of right female breast (principal); L76.32 Postprocedural hematoma of skin and subcutaneous tissue following other procedure; Z71.2 Person consulting for explanation of examination or test findings; Z79.811 Long term (current) use of aromatase inhibitors; Z79.899 Other long term (current) drug therapy; Z80.0 Family history of malignant neoplasm of digestive organs; Z88.8 Allergy status to other drugs, medicaments and biological substances; Z98.890 Other specified postprocedural states; Z94.0 Kidney transplant status ==

== ENCOUNTER → 2023-11-26 | Outpatient (REF) | payer BC ==
[2023-11-26 16:58] LABS: APPEARANCE, URINE HAZY (CLEAR); BACTERIA, URINE AUTO NEGATIVE (NEGATIVE); BILIRUBIN, URINE AUTO NEGATIVE (NEGATIVE); BLOOD, URINE BLOOD NEGATIVE (NEGATIVE); COLOR, URINE YELLOW (YELLOW); GLUCOSE, URINE (UA) AUTO NEGATIVE (NEGATIVE); KETONE, URINE AUTO NEGATIVE (NEGATIVE); LEUKOCYTE ESTERASE, URINE AUTO 3+ (NEGATIVE); NITRITE, URINE AUTO NEGATIVE (NEGATIVE); PROTEIN, URINE AUTO NEGATIVE (NEGATIVE); RBC, URINE AUTO 4 /HPF (0-3); SPECIFIC GRAVITY URINE AUTO 1.014 (1.002-1.035); SQUAMOUS EPITHELIAL CELL UR AU 3 /HPF (0-6); UROBILINOGEN, URINE AUTO 0.2 mg/dL (0.0-2.0); WBC, URINE AUTO 20 /HPF (0-3)
== END ==
LOC: M LAB REF 16:13
PROVIDERS: ATTEND Internal Medicine
DX: N20.0 Calculus of kidney (principal)

== ENCOUNTER → 2023-12-10 | Outpatient (CLI) | payer BC ==
[2023-12-10 14:19] LABS: APPEARANCE, URINE CLEAR (CLEAR); BACTERIA, URINE AUTO NEGATIVE (NEGATIVE); BILIRUBIN, URINE AUTO NEGATIVE (NEGATIVE); BLOOD, URINE BLOOD NEGATIVE (NEGATIVE); COLOR, URINE STRAW (YELLOW); GLUCOSE, URINE (UA) AUTO NEGATIVE (NEGATIVE); KETONE, URINE AUTO NEGATIVE (NEGATIVE); LEUKOCYTE ESTERASE, URINE AUTO NEGATIVE (NEGATIVE); NITRITE, URINE AUTO NEGATIVE (NEGATIVE); PROTEIN, URINE AUTO NEGATIVE (NEGATIVE); RBC, URINE AUTO 0 /HPF (0-3); SPECIFIC GRAVITY URINE AUTO 1.004 (1.002-1.035); SQUAMOUS EPITHELIAL CELL UR AU 0 /HPF (0-6); UROBILINOGEN, URINE AUTO 0.2 mg/dL (0.0-2.0); WBC, URINE AUTO 2 /HPF (0-3)
[2023-12-10 14:25] LABS: BASO % 0.3 % (0.0-1.0); EOS # 0.2 10^3/uL (0.0-0.5); EOS % 1.6 % (0.0-3.0); HEMATOCRIT 42.3 % (36.0-47.0); HEMOGLOBIN 13.6 g/dl (12.0-15.5); LYMPH # 1.8 10^3/uL (1.5-5.0); LYMPH % 14.4 % (24.0-44.0); MEAN CORPUSCULAR HEMOGLOBIN 29.9 pg (27.0-33.0); MEAN CORPUSCULAR HGB CONC 32.2 g/dl (32.0-36.5); MONO # 0.5 10^3/uL (0.0-0.8); MONO % 4.3 % (2.0-8.0); NEUTROPHILS # 9.6 10^3/uL (1.5-8.5); NEUTROPHILS % 79.2 % (36.0-66.0); PLATELET COUNT, AUTOMATED 146 10^3/uL (150-450); RED BLOOD COUNT 4.55 10^6/uL (4.00-5.40); WHITE BLOOD COUNT 12.1 10^3/uL (4.0-10.0)
[2023-12-10 14:42] LABS: ALBUMIN 3.4 G/DL (3.2-5.2); BILIRUBIN,TOTAL 0.4 MG/DL (0.3-1.2); CALCIUM LEVEL 9.7 MG/DL (8.5-10.1); CREATININE FOR GFR 1.26 MG/DL (0.55-1.30); GLOMERULAR FILTRATION RATE 46.8 (>51); POTASSIUM SERUM 4.3 MMOL/L (3.5-5.1)
== END ==
LOC: M LAB 13:26
PROVIDERS: ATTEND Internal Medicine
DX: N18.31 Chronic kidney disease, stage 3a (principal); N10 Acute pyelonephritis; D69.6 Thrombocytopenia, unspecified; Z79.60 Long term (current) use of unspecified immunomodulators and immunosuppressants; Z87.440 Personal history of urinary (tract) infections

== ENCOUNTER → 2023-12-10 | Outpatient (RCR) | payer BC | LOC: M ONCR 14:05 | PROVIDERS: ATTEND General Practice | DX: Z51.0 Encounter for antineoplastic radiation therapy (principal); C50.311 Malignant neoplasm of lower-inner quadrant of right female breast ==

== ENCOUNTER → 2023-12-28 | Outpatient (CLI) | payer BC | LOC: M RAD 08:57 | PROVIDERS: ATTEND Internal Medicine | DX: N10 Acute pyelonephritis (principal); Z94.0 Kidney transplant status; N26.1 Atrophy of kidney (terminal) ==

== ENCOUNTER 2024-01-07 11:50 | Outpatient (RCR) | payer BC | END 2024-01-09 | LOC: M ONCR 11:50 | PROVIDERS: ATTEND General Practice | DX: Z51.0 Encounter for antineoplastic radiation therapy (principal); C50.311 Malignant neoplasm of lower-inner quadrant of right female breast ==

== ENCOUNTER 2024-01-21 11:43 | Outpatient (RCR) | payer BC | END 2024-02-09 | LOC: M ONCR 11:43 | PROVIDERS: ATTEND General Practice | DX: Z51.0 Encounter for antineoplastic radiation therapy (principal); C50.311 Malignant neoplasm of lower-inner quadrant of right female breast ==

== ENCOUNTER → 2024-01-21 | Outpatient (CLI) | payer BC | LOC: M WHC 13:42 | PROVIDERS: ATTEND Specialist | DX: M81.0 Age-related osteoporosis without current pathological fracture (principal); D05.10 Intraductal carcinoma in situ of unspecified breast; Z79.811 Long term (current) use of aromatase inhibitors ==

== ENCOUNTER → 2024-02-25 | Outpatient (REF) | payer BC | LOC: M LAB REF 16:48 | PROVIDERS: ATTEND Nurse Practitioner Family | DX: Z94.0 Kidney transplant status (principal) ==

== ENCOUNTER → 2024-03-24 | Outpatient (CLI) | payer BC ==
[~2024-03-24] MED LIST changes: +TACR0.5C3
[2024-03-24 11:36] LABS: BASO % 0.3 % (0.0-1.0); EOS # 0.3 10^3/uL (0.0-0.5); EOS % 2.9 % (0.0-3.0); HEMATOCRIT 43.6 % (36.0-47.0); HEMOGLOBIN 14.2 g/dl (12.0-15.5); LYMPH # 1.6 10^3/uL (1.5-5.0); LYMPH % 17.6 % (24.0-44.0); MEAN CORPUSCULAR HEMOGLOBIN 30.5 pg (27.0-33.0); MEAN CORPUSCULAR HGB CONC 32.6 g/dl (32.0-36.5); MEAN CORPUSCULAR VOLUME 93.6 fl (80.0-96.0); MONO # 0.8 10^3/uL (0.0-0.8); MONO % 8.6 % (2.0-8.0); NEUTROPHILS # 6.2 10^3/uL (1.5-8.5); NEUTROPHILS % 70.3 % (36.0-66.0); PLATELET COUNT, AUTOMATED 104 10^3/uL (150-450); RED BLOOD COUNT 4.66 10^6/uL (4.00-5.40); WHITE BLOOD COUNT 8.8 10^3/uL (4.0-10.0)
[2024-03-24 11:56] LABS: APPEARANCE, URINE HAZY (CLEAR); BACTERIA, URINE AUTO NEGATIVE (NEGATIVE); BILIRUBIN, URINE AUTO NEGATIVE (NEGATIVE); BLOOD, URINE BLOOD 1+ (NEGATIVE); COLOR, URINE YELLOW (YELLOW); GLUCOSE, URINE (UA) AUTO NEGATIVE (NEGATIVE); KETONE, URINE AUTO NEGATIVE (NEGATIVE); LEUKOCYTE ESTERASE, URINE AUTO TRACE (NEGATIVE); NITRITE, URINE AUTO NEGATIVE (NEGATIVE); PROTEIN, URINE AUTO NEGATIVE (NEGATIVE); RBC, URINE AUTO 2 /HPF (0-3); SPECIFIC GRAVITY URINE AUTO 1.018 (1.002-1.035); SQUAMOUS EPITHELIAL CELL UR AU 2 /HPF (0-6); UROBILINOGEN, URINE AUTO 0.2 mg/dL (0.0-2.0); WBC, URINE AUTO 7 /HPF (0-3)
[2024-03-24 12:01] LABS: TOTAL PROTEIN,RANDOM URINE 18.9 MG/DL (0.0-14.0)
[2024-03-24 12:11] LABS: ALBUMIN 3.5 G/DL (3.2-5.2); BILIRUBIN,TOTAL 0.6 MG/DL (0.3-1.2); CALCIUM LEVEL 9.5 MG/DL (8.5-10.1); CREATININE FOR GFR 1.36 MG/DL (0.55-1.30); GLOMERULAR FILTRATION RATE 42.8 (>51); MAGNESIUM LEVEL 1.5 MG/DL (1.8-2.4); PHOSPHORUS LEVEL 3.1 MG/DL (2.5-4.9); POTASSIUM SERUM 3.7 MMOL/L (3.5-5.1)
== END ==
LOC: M LAB 10:52
PROVIDERS: ATTEND Nurse Practitioner Family
DX: Z94.0 Kidney transplant status (principal); N18.5 Chronic kidney disease, stage 5; D84.9 Immunodeficiency, unspecified; Z79.899 Other long term (current) drug therapy

== ENCOUNTER → 2024-04-28 | Outpatient (REF) | payer BC | LOC: M LAB REF 17:10 | PROVIDERS: ATTEND Nurse Practitioner Family | DX: N10 Acute pyelonephritis (principal) ==

== ENCOUNTER → 2024-05-23 | Outpatient (CLI) | payer BC | LOC: M WHC 13:00 | PROVIDERS: ATTEND Obstetrics & Gynecology | DX: Z12.31 Encounter for screening mammogram for malignant neoplasm of breast (principal); Z85.3 Personal history of malignant neoplasm of breast | CPT/HCPCS: 77066; G0279 ==

== ENCOUNTER → 2024-06-02 | Outpatient (CLI) | payer BC | LOC: M PLAIMG 09:51 | PROVIDERS: ATTEND Nurse Practitioner Family | DX: R05.9 Cough, unspecified (principal); I70.0 Atherosclerosis of aorta ==

== ENCOUNTER → 2024-06-02 | Outpatient (REF) | payer BC | LOC: M LAB REF 16:48 | PROVIDERS: ATTEND Nurse Practitioner Family | DX: Z94.0 Kidney transplant status (principal) ==

== ENCOUNTER → 2024-06-19 | Outpatient (CLI) | payer BC | LOC: M WUC 11:14 | PROVIDERS: ATTEND Student in an Organized Health Care Education/Training Program | DX: S29.011D Strain of muscle and tendon of front wall of thorax, subsequent encounter (principal) ==

== ENCOUNTER → 2024-07-28 | Outpatient (CLI) | payer BC | LOC: M ONCR 11:24 | PROVIDERS: ATTEND General Practice | DX: C50.311 Malignant neoplasm of lower-inner quadrant of right female breast (principal); Z17.32 Human epidermal growth factor receptor 2 negative status; L76.34 Postprocedural seroma of skin and subcutaneous tissue following other procedure; Z98.890 Other specified postprocedural states; Z92.3 Personal history of irradiation; Z88.8 Allergy status to other drugs, medicaments and biological substances; Z79.811 Long term (current) use of aromatase inhibitors; Z79.899 Other long term (current) drug therapy; Z79.51 Long term (current) use of inhaled steroids ==

== ENCOUNTER → 2024-09-13 | Outpatient (REF) | payer BC | LOC: M LAB REF 17:22 | PROVIDERS: ATTEND Nurse Practitioner Family | DX: Z94.0 Kidney transplant status (principal) ==

== ENCOUNTER → 2025-01-19 | Outpatient (REF) | payer BC ==
[~2025-01-19] MED LIST changes: -BRIM1OPD OU; +BRIM5DRO25 OU; +CALC500C16 PO; +LISI2.5T9 PO; -NETA2.5D2; +NETA2.5D2 OU
[2025-01-19 18:31] LABS: FREE T4 1.66 NG/DL (0.89-1.76)
== END ==
LOC: M LAB REF 17:07
PROVIDERS: ATTEND Nurse Practitioner Family
DX: E03.9 Hypothyroidism, unspecified (principal); N39.0 Urinary tract infection, site not specified; Z94.0 Kidney transplant status

== ENCOUNTER → 2025-01-25 | Outpatient (CLI) | payer BC | LOC: M ONCR 11:17 | PROVIDERS: ATTEND General Practice | DX: C50.311 Malignant neoplasm of lower-inner quadrant of right female breast (principal); Z88.8 Allergy status to other drugs, medicaments and biological substances; Z79.899 Other long term (current) drug therapy; Z94.0 Kidney transplant status ==

== ENCOUNTER → 2025-04-27 | Outpatient (REF) | payer BC | LOC: M LAB REF 17:17 | PROVIDERS: ATTEND Nurse Practitioner Family | DX: Z94.0 Kidney transplant status (principal) ==

== ENCOUNTER → 2025-05-28 | Outpatient (CLI) | payer BC | LOC: M WHC 13:51 | PROVIDERS: ATTEND Internal Medicine Medical Oncology | DX: Z12.31 Encounter for screening mammogram for malignant neoplasm of breast (principal); R92.323 Mammographic fibroglandular density, bilateral breasts | CPT/HCPCS: 77066; G0279 ==

== ENCOUNTER → 2025-06-03 | Outpatient (CLI) | payer BC ==
[2025-06-03 10:50] LABS: BASO # 0.0 10^3/uL (0.0-0.2); BASO % 0.4 % (0.0-1.0); EOS # 0.2 10^3/uL (0.0-0.5); EOS % 1.9 % (0.0-3.0); LYMPH # 1.8 10^3/uL (1.5-5.0); LYMPH % 22.9 % (24.0-44.0); MONO # 0.6 10^3/uL (0.0-0.8); MONO % 6.9 % (2.0-8.0); NEUTROPHILS # 5.4 10^3/uL (1.5-8.5); NEUTROPHILS % 67.6 % (36.0-66.0)
[2025-06-03 10:52] LABS: PLATELET COUNT, AUTOMATED 89 10^3/uL (150-450)
[2025-06-03 10:55] LABS: AMORPHOUS SEDIMENT SMALL (NEGATIVE); APPEARANCE, URINE HAZY (CLEAR); BACTERIA, URINE AUTO NEGATIVE (NEGATIVE); BILIRUBIN, URINE AUTO NEGATIVE (NEGATIVE); BLOOD, URINE BLOOD NEGATIVE (NEGATIVE); GLUCOSE, URINE (UA) AUTO 1+ mg/dL (NEGATIVE); KETONE, URINE AUTO NEGATIVE (NEGATIVE); LEUKOCYTE ESTERASE, URINE AUTO NEGATIVE (NEGATIVE); NITRITE, URINE AUTO NEGATIVE (NEGATIVE); PROTEIN, URINE AUTO NEGATIVE (NEGATIVE); RBC, URINE AUTO 0 /HPF (0-3); SPECIFIC GRAVITY URINE AUTO 1.012 (1.002-1.035); SQUAMOUS EPITHELIAL CELL UR AU 1 /HPF (0-6); UROBILINOGEN, URINE AUTO 0.2 mg/dL (0.0-2.0); WBC, URINE AUTO 1 /HPF (0-3)
[2025-06-03 11:11] LABS: TOTAL PROTEIN,RANDOM URINE 15.3 MG/DL (0.0-14.0)
[2025-06-03 11:17] LABS: ALT/SGPT 16.0 U/L (7.0-40); AST/SGOT 15.0 U/L (<34); CALCIUM LEVEL 8.7 MG/DL (8.5-10.1); CARBON DIOXIDE LEVEL 30.0 MMOL/L (20-31); CHLORIDE LEVEL 106.0 MMOL/L (98-107); CREATININE FOR GFR 1.26 MG/DL (0.55-1.30); GLOMERULAR FILTRATION RATE 49.5 (>51); MAGNESIUM LEVEL 1.6 MG/DL (1.8-2.4); PHOSPHORUS LEVEL 2.5 MG/DL (2.5-4.9); POTASSIUM SERUM 4.2 MMOL/L (3.5-5.1); SODIUM LEVEL 144.0 MMOL/L (136-145)
== END ==
LOC: M LAB 10:09
PROVIDERS: ATTEND Nurse Practitioner Family
DX: N18.5 Chronic kidney disease, stage 5 (principal); D84.9 Immunodeficiency, unspecified; Z79.899 Other long term (current) drug therapy; Z94.0 Kidney transplant status